=== PATIENT | male | born 1965 | race Caucasian/White ===

== ENCOUNTER 2018-01-18 10:01 | Emergency (ER) | payer OTHER ==
[~2018-01-18] VITALS: Ht 185.4 cm; Wt 131.5 kg
[~2018-01-18 10:01] MED LIST: ALBU90OI INH; AZIT250 PO; Augmentin 875-1 EACH PO; HYDACE5 PO; IBUP800 PO; NEOPOLHCSU LEFTEAR; Norco 5-325 Ta1 EACH PO; OXYACE5T PO; PARO20 PO; PRED20 PO; Zantac150 MG PO
== END 2018-01-18 10:30 | disposition home or self-care (01) ==
LOC: ER 10:01
DX: L23.7 Allergic contact dermatitis due to plants, except food (principal); F17.210 Nicotine dependence, cigarettes, uncomplicated
CPT/HCPCS: 96372; 99282-25; J3301

== ENCOUNTER 2019-03-04 12:04 | Emergency (ER) | payer OTHER ==
[~2019-03-04] VITALS: Ht 185.4 cm; Wt 127.0 kg
[2019-03-04 12:50] LABS: Influenza A Positive (NEGATIVE); Influenza B Negative (NEGATIVE)
[2019-03-04 13:02] LABS: BASOPHILS ABSOLUTE AUTO 0.04 K/mm3 (0.00-0.23); BASOPHILS PERCENT AUTO 0 % (0-2); EOSINOPHILS ABSOLUTE AUTO 0.01 K/mm3 (0.00-0.68); EOSINOPHILS PERCENT AUTO 0 % (0-6); Hematocrit 41.7 % (37.0-53.0); Hemoglobin 13.8 g/dL (13.5-17.5); IMMATURE GRAN ABSOLUTE AUTO 0.12 K/mm3 (0.00-0.10); IMMATURE GRAN PERCENT AUTO 1 % (0-1); LYMPHOCYTES ABSOLUTE AUTO 0.22 K/mm3 (0.84-5.20); LYMPHOCYTES PERCENT AUTO 2 % (21-46); MONOCYTES PERCENT AUTO 11 % (4-13); Mean Corpuscular HGB Conc 33.1 g/dL (31.5-36.5); Mean Corpuscular Volume 91 fL (80-100); Mean Platelet Volume 10.6 fL (9.1-12.4); NEUTROPHILS ABSOLUTE AUTO 7.98 K/mm3 (1.96-9.15); NEUTROPHILS PERCENT AUTO 85 % (41-73); Platelet Count 174 K/mm3 (150-400); RDW Coefficient Variation 13.1 % (11.7-14.2); RDW Standard Deviation 43.6 fL (35.1-46.3); White Blood Cell Count 9.37 K/mm3 (4.00-11.30)
[2019-03-04 13:15] LABS: Alanine Aminotransfer (ALT/SGP 35 U/L (12-78); Albumin, Blood 3.2 g/dL (3.4-5.0); Albumin/Globulin Ratio 0.8 (0.8-1.8); Alk Phos 110 U/L (50-136); Anion Gap 9 mmol/L (6-16); Aspartate Aminotrans (AST/SGOT 28 U/L (12-37); Bilirubin, Total 0.2 mg/dL (0.1-1.0); Blood Urea Nitrogen 7 mg/dL (8-24); CO2, Blood 21 mmol/L (21-32); Calcium, Blood 8.1 mg/dL (8.5-10.1); Chloride, Blood 105 mmol/L (98-108); Creatinine, Blood 0.58 mg/dL (0.60-1.20); Glomerular Filtration Rate >60 (60-); Glucose, Blood 121 mg/dL (70-99); Potassium, Blood 4.3 mmol/L (3.5-5.5); Sodium, Blood 135 mmol/L (136-145); Total Protein, Blood 7.2 g/dL (6.4-8.2); Troponin I <0.015 ng/mL (0.000-0.040)
[2019-03-04] MEDS ORDERED: ALBU90OI INH (14:31)
== END 2019-03-04 15:17 | disposition home or self-care (01) ==
LOC: ER 12:04
PROVIDERS: Physician Assistant
DX: J10.1 Influenza due to other identified influenza virus with other respiratory manifestations (principal); Z88.5 Allergy status to narcotic agent; F17.210 Nicotine dependence, cigarettes, uncomplicated
CPT/HCPCS: 36415; 71046; 80053; 83880; 84484; 85025; 87804; 93005; 93010; 94640; 96361; 96374; 99284-25; J1885; J7030; J7512

== ENCOUNTER 2020-07-29 17:38 | Emergency (ER) | payer OTHER ==
[~2020-07-29] VITALS: Ht 182.9 cm; Wt 136.1 kg
== END 2020-07-29 20:21 | disposition home or self-care (01) ==
LOC: ER 17:38
DX: I82.811 Embolism and thrombosis of superficial veins of right lower extremity (principal); F17.210 Nicotine dependence, cigarettes, uncomplicated; Z88.5 Allergy status to narcotic agent; Z79.899 Other long term (current) drug therapy
CPT/HCPCS: 93971; 99283-25

== ENCOUNTER 2020-10-04 21:34 | Emergency (ER) | payer OTHER ==
[~2020-10-04] VITALS: Ht 185.4 cm; Wt 158.8 kg
[2020-10-04 22:03] LABS: BASOPHILS ABSOLUTE AUTO 0.08 K/mm3 (0.00-0.23); BASOPHILS PERCENT AUTO 1 % (0-2); EOSINOPHILS ABSOLUTE AUTO 0.45 K/mm3 (0.00-0.68); EOSINOPHILS PERCENT AUTO 5 % (0-6); Hemoglobin 13.7 g/dL (13.5-17.5); IMMATURE GRAN ABSOLUTE AUTO 0.08 K/mm3 (0.00-0.10); IMMATURE GRAN PERCENT AUTO 1 % (0-1); LYMPHOCYTES ABSOLUTE AUTO 2.64 K/mm3 (0.84-5.20); LYMPHOCYTES PERCENT AUTO 29 % (21-46); MONOCYTES ABSOLUTE AUTO 0.87 K/mm3 (0.16-1.47); MONOCYTES PERCENT AUTO 10 % (4-13); Mean Corpuscular HGB 29.5 pg (26.0-34.0); Mean Corpuscular HGB Conc 33.4 g/dL (31.5-36.5); Mean Corpuscular Volume 88 fL (80-100); Mean Platelet Volume 10.2 fL (9.1-12.4); NEUTROPHILS ABSOLUTE AUTO 5.08 K/mm3 (1.96-9.15); NEUTROPHILS PERCENT AUTO 55 % (41-73); Platelet Count 220 K/mm3 (150-400); RDW Coefficient Variation 12.8 % (11.7-14.2); RDW Standard Deviation 41.4 fL (35.1-46.3); Red Blood Cell Count 4.64 M/mm3 (4.30-5.90)
[2020-10-04 22:23] LABS: Alanine Aminotransfer (ALT/SGP 41 U/L (12-78); Albumin, Blood 3.2 g/dL (3.4-5.0); Albumin/Globulin Ratio 0.8 (0.8-1.8); Alk Phos 95 U/L (50-136); Anion Gap 7 mmol/L (6-16); Aspartate Aminotrans (AST/SGOT 21 U/L (12-37); Bilirubin, Total 0.2 mg/dL (0.1-1.0); Blood Urea Nitrogen 14 mg/dL (8-24); CO2, Blood 24 mmol/L (21-32); Calcium, Blood 8.4 mg/dL (8.5-10.1); Chloride, Blood 108 mmol/L (98-108); Creatinine, Blood 0.82 mg/dL (0.60-1.20); Globulin, Blood 4.2 g/dL (2.2-4.0); Glomerular Filtration Rate >60 (60-); Glucose, Blood 101 mg/dL (70-99); Potassium, Blood 4.1 mmol/L (3.5-5.5); Sodium, Blood 139 mmol/L (136-145); Total Protein, Blood 7.4 g/dL (6.4-8.2); Troponin I 0.092 ng/mL (0.000-0.040)
== END 2020-10-05 01:08 | disposition left against medical advice (07) ==
LOC: ER 21:34
PROVIDERS: Student in an Organized Health Care Education/Training Program
DX: R55 Syncope and collapse (principal); Z88.5 Allergy status to narcotic agent; F17.200 Nicotine dependence, unspecified, uncomplicated
CPT/HCPCS: 80053; 84484; 85025; 93005; 93010; 99284-25

== ENCOUNTER 2020-11-11 22:34 | Inpatient (IN) | payer OTHER ==
[~2020-11-11] VITALS: Ht 185.4 cm; Wt 149.5 kg
[2020-11-11 23:45] LABS: International Normalized Ratio 1.1; Prothrombin Time Results 11.8 Sec (9.7-11.5)
[2020-11-11] MEDS ORDERED: ELIQUIS5 M3 PO (23:52)
[2020-11-11] MEDS ORDERED: TEMOVATE15 G1 EXT (23:53)
[2020-11-12 00:21] LABS: BASOPHILS ABSOLUTE AUTO 0.04 K/mm3 (0.00-0.23); BASOPHILS PERCENT AUTO 0 % (0-2); EOSINOPHILS ABSOLUTE AUTO 0.07 K/mm3 (0.00-0.68); EOSINOPHILS PERCENT AUTO 0 % (0-6); Hematocrit 39.3 % (37.0-53.0); Hemoglobin 12.8 g/dL (13.5-17.5); IMMATURE GRAN ABSOLUTE AUTO 0.23 K/mm3 (0.00-0.10); IMMATURE GRAN PERCENT AUTO 2 % (0-1); LYMPHOCYTES ABSOLUTE AUTO 1.93 K/mm3 (0.84-5.20); LYMPHOCYTES PERCENT AUTO 12 % (21-46); MONOCYTES ABSOLUTE AUTO 1.86 K/mm3 (0.16-1.47); MONOCYTES PERCENT AUTO 12 % (4-13); Mean Corpuscular HGB 28.4 pg (26.0-34.0); Mean Corpuscular HGB Conc 32.6 g/dL (31.5-36.5); Mean Corpuscular Volume 87 fL (80-100); Mean Platelet Volume 10.1 fL (9.1-12.4); NEUTROPHILS ABSOLUTE AUTO 11.61 K/mm3 (1.96-9.15); NEUTROPHILS PERCENT AUTO 74 % (41-73); Platelet Count 280 K/mm3 (150-400); RDW Coefficient Variation 13.3 % (11.7-14.2); RDW Standard Deviation 42.5 fL (35.1-46.3); Red Blood Cell Count 4.51 M/mm3 (4.30-5.90); White Blood Cell Count 15.74 K/mm3 (4.00-11.30)
[2020-11-12 00:36] LABS: Alanine Aminotransfer (ALT/SGP 39 U/L (12-78); Albumin, Blood 3.1 g/dL (3.4-5.0); Albumin/Globulin Ratio 0.7 (0.8-1.8); Alk Phos 89 U/L (50-136); Anion Gap 7 mmol/L (6-16); Aspartate Aminotrans (AST/SGOT 23 U/L (12-37); Bilirubin, Total 0.3 mg/dL (0.1-1.0); Blood Urea Nitrogen 18 mg/dL (8-24); Bun/Creatinine Ratio 19.7 (12.0-20.0); CO2, Blood 24 mmol/L (21-32); Calcium, Blood 8.3 mg/dL (8.5-10.1); Chloride, Blood 106 mmol/L (98-108); Creatinine, Blood 0.92 mg/dL (0.60-1.20); Globulin, Blood 4.7 g/dL (2.2-4.0); Glomerular Filtration Rate >60 (60-); Glucose, Blood 126 mg/dL (70-99); Potassium, Blood 4.1 mmol/L (3.5-5.5); Sodium, Blood 137 mmol/L (136-145); Total Protein, Blood 7.8 g/dL (6.4-8.2); Troponin I <0.015 ng/mL (0.000-0.040)
--- NOTE | 2020-11-12 04:53 | NUR ---
SHIFT SUMMARY: KASSIE IS A&OX4. VSS, NO ACUTE EVENTS SINCE ADMISSION THIS MORNING. HE IS TOLERATING PO INTAKE WELL, ABLE TO TURN AND REPOSITION HIMSELF IN BED, AND ABLE TO MAKE HIS NEEDS KNOWN. IV TO L AC PATENT. HE IS LYING IN BED WITH THE CALL LIGHT IN REACH . WILL REPORT TO DAY SHIFT RN.
--- NOTE | 2020-11-12 10:24 | NUR ---
UPON MORING CARES THIS AM. THIS NURSE KNOCKED AND WALKED INTO PATIENT ROOM INTRODUCING SELF. UPON WALKING IN ROOM, PATIENT PULLING AT IV THAT WAS HOOKED UP TO HEPARIN AND SITTING ON EDGE OF BED. THIS NURSE STATED "DON'T PULL THAT OUT, LET ME HELP YOU WITH IT, I DON'T WANT YOU TO BLEED". REACHING ARMS OUT TO HELP WITH IV. PATIENT HIT THIS NURSES ARMS AWAY AND PUSHED BACK AGAINST VITAL SIGN MACHINE IN ROOM. PATIENT YELLS, "I'M TAKING IT OUT, GET OUT OF MY ROOM IM LEAVING HERE". THIS NURSE PUSHED RED BUTTON ON BADGE FOR HELP. PATIENT BEGINS TO RIP OUT IV, TAKE TELE OFF AND PUT PERSONAL CLOTHES ON. PATIENT BEGINS SHOUTING "I WANT TO SEE WHAT IS ON THAT CAMERA" POINTING TO THE CAMERA ON THE CEILING IN THE ROOM. PATIENT WAS REASURED THE CAMERA WAS NOT TURNED ON. PATIENT VERY CLEAR IN HIS INTENTIONS TO LEAVE. CHARGE NURSE TO HELP WITH AMA PAPERWORK. PATIENT EDUCATED AND WARNED ON POTENTIAL RISKS AND DANGERS OF LEAVING HOSPTIAL WITHOUT TREATMENT. PATIENT WANTING TO LEAVE AMA. PATIENT LEFT AMA.
== END 2020-11-12 08:35 | disposition left against medical advice (07) | DRG 177 ==
LOC: ER 22:34 → PCU 11-12 01:20 → SURS 11-12 02:25
PROVIDERS: Emergency Medicine; ADMIT Hospitalist
PROC: XW033E5 Introduction of Remdesivir Anti-infective into Peripheral Vein, Percutaneous Approach, New Technology Group 5 (ICD-10-PCS; principal; 2020-11-12)
DX: U07.1 COVID-19 (principal); I26.99 Other pulmonary embolism without acute cor pulmonale; J96.01 Acute respiratory failure with hypoxia; J12.82 Pneumonia due to coronavirus disease 2019; I82.403 Acute embolism and thrombosis of unspecified deep veins of lower extremity, bilateral; Z68.41 Body mass index [BMI] 40.0-44.9, adult; E66.01 Morbid (severe) obesity due to excess calories; F17.290 Nicotine dependence, other tobacco product, uncomplicated; Z53.29 Procedure and treatment not carried out because of patient's decision for other reasons
CPT/HCPCS: 36415; 71260; 80053; 82728; 84484; 85025; 85379; 85610; 85730; 86141; 93005; 93010; 96365; 96375; 96376; 99285-25; A9270; J1170; J1644; J1940; J2405; J3010; Q9967

== ENCOUNTER 2020-12-06 07:07 | Inpatient (IN) | payer OTHER ==
[~2020-12-06] VITALS: Ht 182.9 cm; Wt 154.0 kg
[~2020-12-06 07:07] MED LIST changes: +ELIQUIS5 M3 PO; +TEMOVATE15 G1 EXT
[2020-12-06 08:09] LABS: BASOPHILS ABSOLUTE AUTO 0.04 K/mm3 (0.00-0.23); BASOPHILS PERCENT AUTO 0 % (0-2); EOSINOPHILS ABSOLUTE AUTO 0.04 K/mm3 (0.00-0.68); EOSINOPHILS PERCENT AUTO 0 % (0-6); Hematocrit 30.7 % (37.0-53.0); Hemoglobin 10.1 g/dL (13.5-17.5); IMMATURE GRAN ABSOLUTE AUTO 0.93 K/mm3 (0.00-0.10); IMMATURE GRAN PERCENT AUTO 4 % (0-1); LYMPHOCYTES ABSOLUTE AUTO 2.61 K/mm3 (0.84-5.20); LYMPHOCYTES PERCENT AUTO 12 % (21-46); MONOCYTES ABSOLUTE AUTO 1.08 K/mm3 (0.16-1.47); MONOCYTES PERCENT AUTO 5 % (4-13); Mean Corpuscular HGB 29.4 pg (26.0-34.0); Mean Corpuscular HGB Conc 32.9 g/dL (31.5-36.5); Mean Corpuscular Volume 90 fL (80-100); NEUTROPHILS ABSOLUTE AUTO 16.36 K/mm3 (1.96-9.15); NEUTROPHILS PERCENT AUTO 78 % (41-73); NRBC ABSOLUTE 0.07 K/mm3 (0.00-0.02); NRBC Auto 0.3 /100 WBC (0.0-0.2); RDW Coefficient Variation 17.5 % (11.7-14.2); RDW Standard Deviation 53.9 fL (35.1-46.3); Red Blood Cell Count 3.43 M/mm3 (4.30-5.90); White Blood Cell Count 21.06 K/mm3 (4.00-11.30)
[2020-12-06 08:15] LABS: Platelet Count 28 K/mm3 (150-400)
[2020-12-06 08:25] LABS: Alanine Aminotransfer (ALT/SGP 97 U/L (12-78); Albumin, Blood 2.6 g/dL (3.4-5.0); Albumin/Globulin Ratio 0.7 (0.8-1.8); Alk Phos 101 U/L (50-136); Anion Gap 5 mmol/L (6-16); Aspartate Aminotrans (AST/SGOT 40 U/L (12-37); Bilirubin, Total 0.4 mg/dL (0.1-1.0); Blood Urea Nitrogen 33 mg/dL (8-24); CO2, Blood 25 mmol/L (21-32); Calcium, Blood 8.4 mg/dL (8.5-10.1); Chloride, Blood 110 mmol/L (98-108); Creatinine, Blood 0.77 mg/dL (0.60-1.20); Globulin, Blood 3.6 g/dL (2.2-4.0); Glomerular Filtration Rate >60 (60-); Glucose, Blood 144 mg/dL (70-99); Potassium, Blood 4.1 mmol/L (3.5-5.5); Sodium, Blood 140 mmol/L (136-145); Total Protein, Blood 6.2 g/dL (6.4-8.2); Troponin I 0.372 ng/mL (0.000-0.040)
[2020-12-06 11:30] LABS: International Normalized Ratio 1.32; Prothrombin Time Results 13.6 Sec (9.7-11.5)
--- NOTE | 2020-12-06 13:00 | NUR ---
PT COMPLAINED OF BLOODY SPUTUM STARTING YESTERDAY. TISSUES PROVIDED, PT HAD PRODUCTIVE COUGH, BLOODY SPUTUM NOTED.
[2020-12-06] MEDS ORDERED: XARELTO20 M1 PO (15:24)
[2020-12-06] MEDS ORDERED: TAMSULOSIN HCL0.4 M1 PO (15:24)
[2020-12-06 15:28] LABS: Hematocrit 31.4 % (37.0-53.0); Hemoglobin 10.4 g/dL (13.5-17.5); Mean Corpuscular HGB 29.5 pg (26.0-34.0); Mean Corpuscular HGB Conc 33.1 g/dL (31.5-36.5); Mean Corpuscular Volume 89 fL (80-100); NRBC ABSOLUTE 0.03 K/mm3 (0.00-0.02); NRBC Auto 0.1 /100 WBC (0.0-0.2); RDW Coefficient Variation 17.6 % (11.7-14.2); RDW Standard Deviation 53.3 fL (35.1-46.3); Red Blood Cell Count 3.53 M/mm3 (4.30-5.90); White Blood Cell Count 22.44 K/mm3 (4.00-11.30)
[2020-12-06 15:53] LABS: Platelet Count 25 K/mm3 (150-400)
[2020-12-06 16:25] LABS: BASOPHILS PERCENT MAN 0 % (0-2); EOSINOPHILS PERCENT MAN 0 % (0-6); TOTAL CELLS COUNTED 100
[2020-12-06 16:29] LABS: BAND PERCENT MAN 1 % (0-8); LYMPHOCYTES ABSOLUTE MAN 2.91 K/mm3 (0.84-5.20); LYMPHOCYTES PERCENT MAN 13 % (21-46); MONOCYTES ABSOLUTE MAN 1.12 K/mm3 (0.16-1.47); MONOCYTES PERCENT MAN 5 % (4-13); SEG NEUTROPHILS PERCENT MAN 81 % (41-73)
--- NOTE | 2020-12-06 16:53 | NUR ---
NO ACUTE EVENTS SINCE ARRIVAL TO UNIT, VSS. PT DENIES CHEST PAIN/PRESSURE. COMPLAINS OF SHORTNESS OF BREATH AT TIMES, BUT O2 SATURATION REMAINS >90% ON ROOM AIR. PT IS ALERT AND ORIENTED, BUT AT TIMES SEEMS TO BE IN CONSTANT MOTION. PT CALLS APPROPRIATELY, IS ABLE TO USE URINAL INDEPENDENTLY.
[2020-12-07 03:45] LABS: BASOPHILS ABSOLUTE AUTO 0.05 K/mm3 (0.00-0.23); BASOPHILS PERCENT AUTO 0 % (0-2); EOSINOPHILS ABSOLUTE AUTO 0.21 K/mm3 (0.00-0.68); EOSINOPHILS PERCENT AUTO 1 % (0-6); Hematocrit 32.1 % (37.0-53.0); Hemoglobin 10.4 g/dL (13.5-17.5); IMMATURE GRAN ABSOLUTE AUTO 0.82 K/mm3 (0.00-0.10); IMMATURE GRAN PERCENT AUTO 5 % (0-1); LYMPHOCYTES ABSOLUTE AUTO 3.28 K/mm3 (0.84-5.20); LYMPHOCYTES PERCENT AUTO 19 % (21-46); MONOCYTES ABSOLUTE AUTO 1.09 K/mm3 (0.16-1.47); MONOCYTES PERCENT AUTO 6 % (4-13); Mean Corpuscular HGB 29.1 pg (26.0-34.0); Mean Corpuscular HGB Conc 32.4 g/dL (31.5-36.5); Mean Corpuscular Volume 90 fL (80-100); Mean Platelet Volume 12.2 fL (9.1-12.4); NEUTROPHILS ABSOLUTE AUTO 11.79 K/mm3 (1.96-9.15); NEUTROPHILS PERCENT AUTO 68 % (41-73); NRBC Auto 0.6 /100 WBC (0.0-0.2); RDW Coefficient Variation 17.9 % (11.7-14.2); RDW Standard Deviation 55.8 fL (35.1-46.3); Red Blood Cell Count 3.57 M/mm3 (4.30-5.90); White Blood Cell Count 17.24 K/mm3 (4.00-11.30)
[2020-12-07 03:50] LABS: Platelet Count 33 K/mm3 (150-400)
[2020-12-07 04:04] LABS: Alanine Aminotransfer (ALT/SGP 82 U/L (12-78); Albumin, Blood 2.4 g/dL (3.4-5.0); Albumin/Globulin Ratio 0.7 (0.8-1.8); Alk Phos 72 U/L (50-136); Anion Gap 4 mmol/L (6-16); Aspartate Aminotrans (AST/SGOT 31 U/L (12-37); Bilirubin, Total 0.7 mg/dL (0.1-1.0); Blood Urea Nitrogen 20 mg/dL (8-24); Bun/Creatinine Ratio 28.4 (12.0-20.0); CO2, Blood 26 mmol/L (21-32); Chloride, Blood 108 mmol/L (98-108); Globulin, Blood 3.6 g/dL (2.2-4.0); Glomerular Filtration Rate >60 (60-); Glucose, Blood 99 mg/dL (70-99); Potassium, Blood 4.1 mmol/L (3.5-5.5); Sodium, Blood 138 mmol/L (136-145)
--- NOTE | 2020-12-07 06:34 | NUR ---
SHIFT SUMMARY PATIENT IS RESTING COMFORTABLY IN BED. BED IS IN LOW POSITION. CALL LIGHT IS IN REACH. THE PATIENT SLEPT ALLTHROUGH THE NIGHT. NO ACTIVE SIGNS OF WITHDRAWALS. VITAL HAVE LADAN STABLE ALL NIGHT. PATIENT IS INDPENDENT AND TRUNS HIMSELF IN BED. NO COMPLAINTS OF PAIN. NO MAJOR EVENTS DURING THE NIGHT. WILL CONTINUE TO MONITOR. REPORT WILL BE GIVEN TO DAY SHIFT NURSE.
--- NOTE | 2020-12-07 12:42 | NUR ---
NOON ASSESSMENT PT HAS BEEN RESTING DURING THE SHIFT BUT AWAKENS AND RESPONDS APPROPRIATELY WHEN SPOKEN TO. PT WAS PLACED ON 2L O2 WHILE SLEEPING, PT REPORTS HE WEARS O2 AT HOME AND THAT HE SHOULD WEAR A CPAP BUT DOES NOT USE IT AT HOME OR WISH TO HAVE ONE HERE. LUNG SOUNDS ARE CLEAR T/O. WILL CONTINUE TO MONITOR.
--- NOTE | 2020-12-07 16:09 | NUR ---
AFTERNOON ASSESSMENT PT RESTING IN HIS BED ON 3L O2, HE CONTINUES TO HAVE OCCASIONAL DESATURATION WHILE SLEEPING. CPAP REQUESTED AND WAITING FOR RT TO PLACE IN ROOM. PT WAS ASSISTED TO THE BATHROOM WITH GAIT BELT HE IS SOMEWHAT IMPULSIVE/UNSTEADY ON HIS FEET. PT REPORTS FEELING SHORT OF BREATH WITH ACTIVITY. LUNG SOUNDS DIM T/O AND UNCHANGED FROM PREVIOUS ASSESSMENT. PT GIVEN AN INCENTIVE SPIROMETER AND EDUCATED TO USE. PT EDUCATED TO SIT UP FOR DINNER. PT ON 3L O2 WHILE AT REST AND AWAKE. SLAT PICKLER AJ NOTIFIED OF INCREASED NEED FOR O2. HE IS HAVING A PRODUCTIVE COUGH. PT EDUCATED TO SAVE SPUTUM FOR STAFF TO OBSERVE.
--- NOTE | 2020-12-07 17:34 | NUR ---
SHIFT SUMMARY PT HAS BEEN SLEEPING FOR MUCH OF THE DAY. HE HAS AMBULATED SHORT DISTANCES TO THE BATHROOM. PT HAS HAD INCREASING DIFFICULTY MAINTAINING O2 SATURATIONS THIS AFTERNOON EVEN WHILE AWAKE. PT IS CURRENTLY MAINTAINING LOW 90'S ON 4LO2 VIA NC. CPAP HAS ALSO BEEN PLACED IN PT'S ROOM FOR USE WHILE SLEEPING. RECOVERY ENGINEER NOTIFIED OF INCREASED O2 NEEDS THIS AFTERNOON. PT EDUCATED TO USE INCENTIVE SPIROMETER WHILE AWAKE. PT IS UNSTEADY ON HIS FEET AND GAIT BELT WAS USED FOR AMBULATION.
--- NOTE | 2020-12-07 19:45 | NUR ---
ASSUMPTION OF CARE/UPDATE ASSUMED CARE AT 1845 AFTER RECIEVING REPORT FROM EXPORT ADMINISTRATOR RN. PATIENT RESTLESS IN BED. REQUIRING 4L OXYGEN VIA NC. OXYGEN SATURATION ABOVE 90% WHEN PATIENT RESTING AND OXYGEN IN PLACE. TELE MONITOR IN PLACE. UPDATE PATIENT RESTLESS AND USED CALL LIGHT FOR PAIN MEDICINE DUE TO PAIN IN RIGHT LUNG. PATIENT RAISING VOICE AT STAFF DUE TO PAIN. CALL PLACED TO DR. BILLINGS. DR. BILLINGS ALSO AWARE OF PATIENT'S ETOH HX, SEE NEW ORDERS, WILL CONTINUE TO MONITOR FOR WTHDRAWL SYMPTOMS.
--- NOTE | 2020-12-08 06:05 | NUR ---
SHIFT SUMMARY PATIENT SLEEPING THROUGH SHIFT. ABLE TO WAKE UP FOR MEDICATIONS OR WHEN STAFF IS AT BEDSIDE. CPAP IS SET UP BUT PATIENT IS WEARING 5L NC, OXYGEN SATURATIONS MAINTAINING ABOVE 92% BUT PATIENT DESATS WITH ACTIVITY OR WHEN OXYGEN IS OFF. PATIENT WAS RESTLESS/AGITATED AT START OF SHIFT WITH COMPLAINTS OF PAIN, CALL WAS PLACED TO DR WITH UPDATED ORDERS FOR PAIN MEDICATION AND CIWA PROTOCOL. NEGATIVE CIWA AT THIS TIME. PATIENT REFUSED PAIN MEDICATION THAT THIS RN OFFERED. NO OTHER SIGNIFICANT CHANGES TO PATIENTS STATUS AT THIS TIME.
[2020-12-08 10:02] LABS: BASOPHILS ABSOLUTE AUTO 0.03 K/mm3 (0.00-0.23); BASOPHILS PERCENT AUTO 0 % (0-2); EOSINOPHILS ABSOLUTE AUTO 0.23 K/mm3 (0.00-0.68); EOSINOPHILS PERCENT AUTO 2 % (0-6); Hematocrit 30.9 % (37.0-53.0); Hemoglobin 9.9 g/dL (13.5-17.5); IMMATURE GRAN ABSOLUTE AUTO 0.37 K/mm3 (0.00-0.10); IMMATURE GRAN PERCENT AUTO 3 % (0-1); LYMPHOCYTES ABSOLUTE AUTO 1.46 K/mm3 (0.84-5.20); LYMPHOCYTES PERCENT AUTO 11 % (21-46); MONOCYTES ABSOLUTE AUTO 0.72 K/mm3 (0.16-1.47); MONOCYTES PERCENT AUTO 6 % (4-13); Mean Corpuscular HGB 28.9 pg (26.0-34.0); Mean Corpuscular Volume 90 fL (80-100); Mean Platelet Volume 11.7 fL (9.1-12.4); NEUTROPHILS PERCENT AUTO 79 % (41-73); NRBC ABSOLUTE 0.03 K/mm3 (0.00-0.02); NRBC Auto 0.2 /100 WBC (0.0-0.2); RDW Coefficient Variation 17.5 % (11.7-14.2); RDW Standard Deviation 55.7 fL (35.1-46.3); Red Blood Cell Count 3.43 M/mm3 (4.30-5.90); White Blood Cell Count 13.21 K/mm3 (4.00-11.30)
[2020-12-08 10:05] LABS: Platelet Count 30 K/mm3 (150-400)
[2020-12-08 10:25] LABS: Alanine Aminotransfer (ALT/SGP 51 U/L (12-78); Albumin, Blood 2.1 g/dL (3.4-5.0); Albumin/Globulin Ratio 0.6 (0.8-1.8); Alk Phos 64 U/L (50-136); Anion Gap 6 mmol/L (6-16); Aspartate Aminotrans (AST/SGOT 25 U/L (12-37); Bilirubin, Total 0.7 mg/dL (0.1-1.0); Blood Urea Nitrogen 15 mg/dL (8-24); Bun/Creatinine Ratio 21.9 (12.0-20.0); CO2, Blood 25 mmol/L (21-32); Calcium, Blood 7.7 mg/dL (8.5-10.1); Chloride, Blood 106 mmol/L (98-108); Creatinine, Blood 0.68 mg/dL (0.60-1.20); Globulin, Blood 3.8 g/dL (2.2-4.0); Glomerular Filtration Rate >60 (60-); Glucose, Blood 168 mg/dL (70-99); Sodium, Blood 137 mmol/L (136-145); Total Protein, Blood 5.9 g/dL (6.4-8.2); Vancomycin, Trough 5.6 ug/mL (5.0-10.0)
--- NOTE | 2020-12-08 14:42 | NUR ---
MIDDAY UPDATE/TRANSFER TO MED FLOOR PT HAS DONE WELL TODAY BUT IS UNMOTIVATED. O2 SATS HAVE MAINTAINED ON 5-6L. WAS UP TO AMBULATE TO BATHROOM & TOLERATED WELL; DECLINED UP TO CHAIR. USED IS x 1. DANGLES @ BEDSIDE TO EAT MEALS. OTHER THAN THOSE EVENTS, PT HAS CONTINUED TO SLEEP. REPORT CALLED TO [facility] ON [facility] FLOOR. ESCORTED VIA W/C TO ROOM 332.
--- NOTE | 2020-12-08 15:46 | NUR ---
PT TX FROM PCU 13 AT 1455, PT AMBULATED INTO BED. A/O X4, VERBAL AND APPROPRIATE. VSS, SATS 97% 5L, BROUGHT TO 4L, SET UP CONT PULSE OX. TELE IN PLACE. RUNNING SR 80"S. ORIENTED TO ROOM AND SAFETY.
--- NOTE | 2020-12-08 19:54 | NUR ---
SUMM- PT SLEPT MOST OF THE DAY, AWAKENS EASILY. CONT PULSE OX REMOTE DEYSI, FROM 5L TO 4L SATTING 94-98%. SATS DROP SLIGHT WHILE SLEEPING WITH APNIC/SNORING LOWEST 94%- RESP EVEN UNLABORED. STRONG PROD COUGH, PT STATES HE STALLOWS SECRETIONS AND HASN'T LOOKED DOESNT KNOW IF IT'S BLOOD STREAKED. LOWER EXT TAUGHT AND SOME BRUISING. TOLERATING FOOD AND FLUIDS. CIWAA 0-1. NO SS OF ETOH WITHDRALW.
[2020-12-09 05:20] LABS: BASOPHILS ABSOLUTE AUTO 0.04 K/mm3 (0.00-0.23); BASOPHILS PERCENT AUTO 0 % (0-2); EOSINOPHILS ABSOLUTE AUTO 0.33 K/mm3 (0.00-0.68); EOSINOPHILS PERCENT AUTO 3 % (0-6); Hematocrit 28.7 % (37.0-53.0); Hemoglobin 9.2 g/dL (13.5-17.5); IMMATURE GRAN ABSOLUTE AUTO 0.34 K/mm3 (0.00-0.10); IMMATURE GRAN PERCENT AUTO 3 % (0-1); LYMPHOCYTES ABSOLUTE AUTO 1.65 K/mm3 (0.84-5.20); LYMPHOCYTES PERCENT AUTO 13 % (21-46); MONOCYTES ABSOLUTE AUTO 0.77 K/mm3 (0.16-1.47); MONOCYTES PERCENT AUTO 6 % (4-13); Mean Corpuscular HGB 29.1 pg (26.0-34.0); Mean Corpuscular HGB Conc 32.1 g/dL (31.5-36.5); Mean Corpuscular Volume 91 fL (80-100); Mean Platelet Volume 11.2 fL (9.1-12.4); NEUTROPHILS ABSOLUTE AUTO 9.38 K/mm3 (1.96-9.15); NEUTROPHILS PERCENT AUTO 75 % (41-73); RDW Coefficient Variation 17.3 % (11.7-14.2); RDW Standard Deviation 56.6 fL (35.1-46.3); Red Blood Cell Count 3.16 M/mm3 (4.30-5.90); White Blood Cell Count 12.51 K/mm3 (4.00-11.30)
[2020-12-09 05:35] LABS: Platelet Count 42 K/mm3 (150-400)
[2020-12-09 05:56] LABS: Alanine Aminotransfer (ALT/SGP 42 U/L (12-78); Albumin, Blood 2.1 g/dL (3.4-5.0); Albumin/Globulin Ratio 0.6 (0.8-1.8); Alk Phos 64 U/L (50-136); Anion Gap 5 mmol/L (6-16); Aspartate Aminotrans (AST/SGOT 22 U/L (12-37); Bilirubin, Total 0.9 mg/dL (0.1-1.0); Blood Urea Nitrogen 14 mg/dL (8-24); Bun/Creatinine Ratio 19.3 (12.0-20.0); CO2, Blood 26 mmol/L (21-32); Calcium, Blood 8.2 mg/dL (8.5-10.1); Chloride, Blood 106 mmol/L (98-108); Creatinine, Blood 0.73 mg/dL (0.60-1.20); Globulin, Blood 3.7 g/dL (2.2-4.0); Glomerular Filtration Rate >60 (60-); Glucose, Blood 118 mg/dL (70-99); Sodium, Blood 137 mmol/L (136-145); Total Protein, Blood 5.8 g/dL (6.4-8.2)
--- NOTE | 2020-12-09 05:59 | NUR ---
END OF SHIF SUMMARY PATIENT HAD A STABLE SHIFT WITHOUT ANY ADVERSE EVENT. STILL ON CONTINUOUS PULSE OX MONITOR.
[2020-12-09 11:22] LABS: Vancomycin, Trough 15.7 ug/mL (5.0-10.0)
--- NOTE | 2020-12-09 16:34 | NUR ---
SHIFT SUMMARY PATIENT DENIES PAIN, NAUSEA, AND SHORTNESS OF BREATH AT REST. PATIENT REPORTS SOB WITH ACTIVITY. PATIENT TITRATED DOWN TO 3L AND MAINTAINING SATS ABOVE 94%. PATIENT COUGHED UP A SMALL AMOUNT OF BRIGHT RED SPUTUM, ONCE THIS SHIFT. PATIENT EATING AND DRINKING WELL. PATIENT SLEPT MOST OF SHIFT. PATIENT IS A SBA TO THE BATHROOM. PATIENT IS PLEASANT AND COOPERATIVE WITH CARE.
--- NOTE | 2020-12-09 17:47 | NUR ---
Update 12/09/20: Per chart review, pt. not yet appropriate for discharge. Anticipate needs at time of discharge to include: Home O2 eval, potentially O2 (has O2 that uses at night time at home), ensure that he has Xarelto and does not need samples/discount card, potential need for HH dependent upon improvements, discussion regarding CPAP supplies and potential need for adjustments.
--- NOTE | 2020-12-10 01:20 | NUR ---
INTERMITTENT MOUTH BREATHER, O2 PER NC, ENCOURAGED TO TAKE DEEP BREATHS, CALL LIGHT IN REACH
[2020-12-10 04:55] LABS: BASOPHILS ABSOLUTE AUTO 0.04 K/mm3 (0.00-0.23); BASOPHILS PERCENT AUTO 0 % (0-2); EOSINOPHILS ABSOLUTE AUTO 0.49 K/mm3 (0.00-0.68); EOSINOPHILS PERCENT AUTO 4 % (0-6); Hematocrit 28.3 % (37.0-53.0); Hemoglobin 9.1 g/dL (13.5-17.5); IMMATURE GRAN ABSOLUTE AUTO 0.23 K/mm3 (0.00-0.10); IMMATURE GRAN PERCENT AUTO 2 % (0-1); LYMPHOCYTES ABSOLUTE AUTO 1.81 K/mm3 (0.84-5.20); LYMPHOCYTES PERCENT AUTO 16 % (21-46); MONOCYTES ABSOLUTE AUTO 0.83 K/mm3 (0.16-1.47); MONOCYTES PERCENT AUTO 7 % (4-13); Mean Corpuscular HGB Conc 32.2 g/dL (31.5-36.5); Mean Corpuscular Volume 90 fL (80-100); Mean Platelet Volume 11.9 fL (9.1-12.4); NEUTROPHILS ABSOLUTE AUTO 7.77 K/mm3 (1.96-9.15); NEUTROPHILS PERCENT AUTO 70 % (41-73); Platelet Count 65 K/mm3 (150-400); RDW Coefficient Variation 16.9 % (11.7-14.2); RDW Standard Deviation 54.8 fL (35.1-46.3); Red Blood Cell Count 3.14 M/mm3 (4.30-5.90); White Blood Cell Count 11.17 K/mm3 (4.00-11.30)
[2020-12-10 05:19] LABS: Alanine Aminotransfer (ALT/SGP 38 U/L (12-78); Albumin, Blood 2.1 g/dL (3.4-5.0); Albumin/Globulin Ratio 0.6 (0.8-1.8); Alk Phos 64 U/L (50-136); Anion Gap 5 mmol/L (6-16); Aspartate Aminotrans (AST/SGOT 23 U/L (12-37); Bilirubin, Total 0.6 mg/dL (0.1-1.0); Blood Urea Nitrogen 14 mg/dL (8-24); Bun/Creatinine Ratio 19.9 (12.0-20.0); CO2, Blood 25 mmol/L (21-32); Calcium, Blood 8.1 mg/dL (8.5-10.1); Chloride, Blood 108 mmol/L (98-108); Globulin, Blood 3.7 g/dL (2.2-4.0); Glomerular Filtration Rate >60 (60-); Glucose, Blood 130 mg/dL (70-99); Sodium, Blood 138 mmol/L (136-145); Total Protein, Blood 5.8 g/dL (6.4-8.2)
--- NOTE | 2020-12-10 07:26 | NUR ---
STOVE INSTALLER SUMMARY ADMITTED FOR PNEUMONIA/SEPSIS/BILATERAL PE. PT IS FULL CODE. PT CIWA CONTINUES TO BE NEGATIVE. PT GIVEN IV ANTIBIOTICS. RESTING ON 3L BY NC, SATS IN THE HIGH 90S WITH SOME DROPS TO 75 DUE TO PT SLEEP APNEA. RETURNS TO HIGH 90S QUICKLY WITH DEEP BREATHS. NO OTHER CONCERNS THIS SHIFT.
[2020-12-10] MEDS ORDERED: DOXY100 PO (12:28)
[2020-12-10] MEDS ORDERED: AMOCLA875 PO (12:29)
--- NOTE | 2020-12-10 13:00 | NUR ---
DISCHARGE PATIENT TRANSPORTED VIA WHEELCHAIR TO PRIVATE VEHICLE. DISCHARGE INSTRUCTIONS EXPLAINED TO PATIENT. PATIENT STATED UNDERSTANDING. PACKET SENT WITH PATIENT. IV REMOVED WITHOUT DIFFICULTY. TELE REMOVED WITHOUT DIFFICULTY. MEDICATIONS SENT TO PREFERRED PHARMACY. [facility] TO SCHEDULE FOLLOW UP WITH PCP.
--- NOTE | 2020-12-10 18:03 | NUR ---
UPDATE 12/10/20: PER CHART REVIEW, PT. APPROPRIATE FOR DISCHARGE TODAY. PT. SCHEDULED FOR HOSPITAL F/U 12/15/20 AT [address] SANDOVAL WAS UNAVAILABLE. CONTACTED [facility] AND REQUESTED THAT THEY ASSIST PT. WITH A NEW O2 BOTTLE HE STATES THAT HIS IS LEAKING. PT. WILL LIKELY NEED SLEEP STUDY TO ORDER NEW SUPPLIES FOR CPAP. WOULD BENEFIT FROM AN ALTERNATIVE MASK/NC THAT MIGHT BE MORE COMFORTABLE. PT. WAS PROVIDED WITH SAMPLES OF XARELTO 20MG, BUT LEFT THE HOSPITAL WITHOUT THOSE. I HAVE ATTEMPTED TO REACH HIM SEVERAL TIMES WITHOUT SUCCESS. WILL REQUEST THAT THE [facility] TEAM CONTACT HIM TOMORROW AND ASK THAT HE COME BY TO PICK THOSE UP. PT. STATED PRIOR TO DISCHARGE THAT HE FEELS HE HAS A STRONG SUPPORT SYSTEM. HE DENIED ANY ADDITIONAL NEEDS.
== END 2020-12-10 13:00 | disposition home or self-care (01) | DRG 871 ==
LOC: ER 07:07 → PCU 10:59 → MEDS 12-08 14:55
PROVIDERS: Emergency Medicine; ADMIT Internal Medicine Endocrinology, Diabetes & Metabolism
DX: A41.9 Sepsis, unspecified organism (principal); J18.9 Pneumonia, unspecified organism; I26.99 Other pulmonary embolism without acute cor pulmonale; Z68.41 Body mass index [BMI] 40.0-44.9, adult; R04.2 Hemoptysis; E66.01 Morbid (severe) obesity due to excess calories; I70.213 Atherosclerosis of native arteries of extremities with intermittent claudication, bilateral legs; D69.6 Thrombocytopenia, unspecified; G47.33 Obstructive sleep apnea (adult) (pediatric); Z86.718 Personal history of other venous thrombosis and embolism; Z88.5 Allergy status to narcotic agent; Z79.899 Other long term (current) drug therapy; L40.9 Psoriasis, unspecified; Z87.891 Personal history of nicotine dependence; Z86.16 Personal history of COVID-19
CPT/HCPCS: 36415; 71260; 80053; 80202; 83605; 83880; 84484; 85007; 85025; 85027; 85610; 85730; 86022; 87040; 87070; 87205; 93005; 93010; 93306; 93925; 94660; 94761; 94762; 96365; 96367; 99285-25; A9270; J0456; J0696; J3370; J3480; J7050; Q9967

== ENCOUNTER 2020-12-15 12:39 | Emergency (ER) | payer OTHER ==
[~2020-12-15] VITALS: Ht 182.9 cm; Wt 149.7 kg
[~2020-12-15 12:39] MED LIST changes: +AMOCLA875 PO; +DOXY100 PO; +TAMSULOSIN HCL0.4 M1 PO; +XARELTO20 M1 PO
[2020-12-15 13:53] LABS: BASOPHILS ABSOLUTE AUTO 0.04 K/mm3 (0.00-0.23); BASOPHILS PERCENT AUTO 0 % (0-2); EOSINOPHILS ABSOLUTE AUTO 0.01 K/mm3 (0.00-0.68); EOSINOPHILS PERCENT AUTO 0 % (0-6); Hematocrit 26.5 % (37.0-53.0); Hemoglobin 8.4 g/dL (13.5-17.5); IMMATURE GRAN PERCENT AUTO 2 % (0-1); LYMPHOCYTES ABSOLUTE AUTO 1.22 K/mm3 (0.84-5.20); LYMPHOCYTES PERCENT AUTO 8 % (21-46); MONOCYTES ABSOLUTE AUTO 0.85 K/mm3 (0.16-1.47); MONOCYTES PERCENT AUTO 6 % (4-13); Mean Corpuscular HGB 28.5 pg (26.0-34.0); Mean Corpuscular HGB Conc 31.7 g/dL (31.5-36.5); Mean Corpuscular Volume 90 fL (80-100); Mean Platelet Volume 12.4 fL (9.1-12.4); NEUTROPHILS ABSOLUTE AUTO 12.91 K/mm3 (1.96-9.15); NEUTROPHILS PERCENT AUTO 84 % (41-73); NRBC ABSOLUTE 0.05 K/mm3 (0.00-0.02); NRBC Auto 0.3 /100 WBC (0.0-0.2); Platelet Count 62 K/mm3 (150-400); RDW Coefficient Variation 17.2 % (11.7-14.2); RDW Standard Deviation 55.7 fL (35.1-46.3); Red Blood Cell Count 2.95 M/mm3 (4.30-5.90); White Blood Cell Count 15.33 K/mm3 (4.00-11.30)
[2020-12-15 14:10] LABS: International Normalized Ratio 1.61; Prothrombin Time Results 16.4 Sec (9.7-11.5)
[2020-12-15 14:13] LABS: Alanine Aminotransfer (ALT/SGP 45 U/L (12-78); Albumin, Blood 2.5 g/dL (3.4-5.0); Albumin/Globulin Ratio 0.6 (0.8-1.8); Alk Phos 78 U/L (50-136); Anion Gap 7 mmol/L (6-16); Aspartate Aminotrans (AST/SGOT 39 U/L (12-37); Bilirubin, Total 0.8 mg/dL (0.1-1.0); Blood Urea Nitrogen 25 mg/dL (8-24); Bun/Creatinine Ratio 29.3 (12.0-20.0); CO2, Blood 24 mmol/L (21-32); Calcium, Blood 8.4 mg/dL (8.5-10.1); Chloride, Blood 106 mmol/L (98-108); Creatinine, Blood 0.85 mg/dL (0.60-1.20); Globulin, Blood 4.5 g/dL (2.2-4.0); Glomerular Filtration Rate >60 (60-); Glucose, Blood 148 mg/dL (70-99); Potassium, Blood 4.3 mmol/L (3.5-5.5); Sodium, Blood 137 mmol/L (136-145); Troponin I 0.222 ng/mL (0.000-0.040)
[2020-12-15] MEDS ORDERED: FAMO20 PO (18:47)
== END 2020-12-15 22:50 | disposition home or self-care (01) ==
LOC: ER 12:39
PROVIDERS: Physician Assistant
DX: U07.1 COVID-19 (principal); J12.82 Pneumonia due to coronavirus disease 2019; Z88.5 Allergy status to narcotic agent; Z79.899 Other long term (current) drug therapy; Z79.01 Long term (current) use of anticoagulants; Z86.711 Personal history of pulmonary embolism; Z86.718 Personal history of other venous thrombosis and embolism; Z87.891 Personal history of nicotine dependence
CPT/HCPCS: 36415; 70450; 71045; 80053; 83605; 83880; 84145; 84484; 85025; 85610; 86850; 86900; 86901; 93005; 93010; 96374; 99285-25; J0696